=== PATIENT | female | born 1980 | race Caucasian/White ===

== ENCOUNTER 2016-05-30 06:45 | Observation (INO) | payer OTHER ==
[2016-05-30] MEDS ORDERED: PREN1TAB80 PO (07:06)
[2016-05-30] MEDS ORDERED: THYR300T PO (07:07)
[2016-05-30 07:08] VITALS: BP 144/87
[2016-07-06] MEDS ORDERED: FERR-89 PO (11:08)
== END 2016-05-30 09:05 | disposition home or self-care (01) ==
LOC: 4S 06:45
PROVIDERS: ADMIT Obstetrics & Gynecology; ATTEND Obstetrics & Gynecology
DX: O62.9 Abnormality of forces of labor, unspecified (principal); Z3A.32 32 weeks gestation of pregnancy
CPT/HCPCS: 59025; 76811; 76812; G0378

== ENCOUNTER 2016-06-01 17:35 | Observation (INO) | payer OTHER ==
[~2016-06-01] VITALS: Ht 175.3 cm; Wt 98.9 kg
[~2016-06-01 17:35] MED LIST: PREN1TAB80 PO; THYR300T PO
[2016-06-01 18:39] VITALS: BP 135/88
[2016-07-06] MEDS ORDERED: FERR-89 PO (11:08)
== END 2016-06-01 19:30 | disposition home or self-care (01) ==
LOC: 4S 17:35
PROVIDERS: ADMIT Obstetrics & Gynecology; ATTEND Obstetrics & Gynecology
DX: O26.893 Other specified pregnancy related conditions, third trimester (principal); Z3A.32 32 weeks gestation of pregnancy
CPT/HCPCS: 59025; G0378

== ENCOUNTER 2016-06-05 12:55 | Inpatient (IN) | payer OTHER ==
[~2016-06-05] VITALS: Ht 175.3 cm; Wt 100.2 kg
[2016-06-05] MEDS ORDERED: RINGERS SOLUTION,LACTATED 1,000 ML IV PRN (17:55)
[2016-06-05] MEDS ORDERED: CITRIC ACID/SODIUM CITRATE 30 ML SOLUTION UDCUP PO PRN (18:00)
[2016-06-05] MEDS ORDERED: METOCLOPRAMIDE HCL 5 MG/ML 2 ML VIAL IVP PRN (18:00)
[2016-06-05] MEDS: RINGERS SOLUTION,LACTATED 1,000 ML IV SCH ×2 (18:14→21:26)
[2016-06-05 18:24] LABS: BASOPHILS % (AUTO) 0.5 % (0.0-2.0); EOSINOPHILS % (AUTO) 0.2 % (1.0-6.0); HEMATOCRIT 33.2 % (36-46); HEMOGLOBIN 10.8 g/dL (12.0-16.0); MEAN CORPUSCULAR HEMOGLOBIN 28.5 pg (26.0-34.0); MEAN CORPUSCULAR HGB CONC 32.6 G/dL (31.0-37.0); MEAN CORPUSCULAR VOLUME 87 fL (80-100); MONOCYTES # (AUTO) 0.6 K/uL (0.1-1.0); MONOCYTES % (AUTO) 6.6 % (2.0-9.0); NEUTROPHILS # (AUTO) 5.6 K/uL (1.8-7.7); NEUTROPHILS % (AUTO) 60.7 % (40.0-70.0); RED CELL DISTRIBUTION WIDTH 14.2 % (11.5-14.5); WHITE BLOOD COUNT (AUTO) 9.3 K/uL (4.5-11.0)
[2016-06-05 18:40] LABS: ALANINE AMINOTRANSFERASE 14 U/L (12-78); ALBUMIN 2.5 g/dL (3.4-5.0); ANION GAP 12 mmol/L (8-16); ASPARTATE AMINOTRANSFERASE 13 U/L (15-37); BILIRUBIN,TOTAL 0.3 mg/dL (0.1-1.0); CALCIUM, TOTAL 8.2 mg/dL (8.8-10.5); CARBON DIOXIDE 22 mmol/L (22-29); CHLORIDE 103 mmol/L (98-107); CREATININE 0.65 mg/dL (0.60-1.30); GLOMERULAR FILTR. RATE CALC > 60 mL/min (>60); POTASSIUM 3.6 mmol/L (3.5-5.1); SODIUM SERUM 137 mmol/L (136-145); TOTAL PROTEIN, SERUM 6.7 g/dL (6.4-8.2); UREA NITROGEN, BLOOD 4 mg/dL (7-18)
[2016-06-05] MEDS: OXYGEN THERAPY IH SCH (20:00)
[2016-06-05] MEDS: NIFEdipine 10 MG CAPSULE PO SCH (21:20)
[2016-06-05] MEDS: BETAMETHASONE SOLUSPAN 6 MG/ML 5 ML VIAL IM SCH (21:23)
[2016-06-05 22:33] VITALS: BP 149/86
[2016-06-06] MEDS: NIFEdipine 10 MG CAPSULE PO SCH ×4 (03:26→21:50)
[2016-06-06] MEDS: RINGERS SOLUTION,LACTATED 1,000 ML IV SCH ×2 (14:21→20:58)
[2016-06-06] MEDS: OXYGEN THERAPY IH SCH ×2 (15:22→20:00)
[2016-06-06] MEDS ORDERED: THYROID 30 MG TABLET PO ONE (16:30)
[2016-06-06] MEDS: BETAMETHASONE SOLUSPAN 6 MG/ML 5 ML VIAL IM SCH (21:50)
[2016-06-06] MEDS ORDERED: DSS100 PO (22:19)
[2016-06-06] MEDS ORDERED: FERR-89 PO (22:20)
[2016-06-07] MEDS ORDERED: THYROID 30 MG TABLET PO SCH (06:30)
[2016-07-06] MEDS ORDERED: FERR-89 PO (11:08)
== END 2016-06-06 22:40 | disposition home or self-care (01) | DRG 781 ==
LOC: 4S 12:55 → OBSVTOIN 12:55
PROVIDERS: ADMIT Obstetrics & Gynecology; ATTEND Obstetrics & Gynecology
PROC: 4A1HXCZ Monitoring of Products of Conception, Cardiac Rate, External Approach (ICD-10-PCS; principal; 2016-06-05)
DX: O99.283 Endocrine, nutritional and metabolic diseases complicating pregnancy, third trimester (principal); O31.8X31 Other complications specific to multiple gestation, third trimester, fetus 1; O31.8X32 Other complications specific to multiple gestation, third trimester, fetus 2; O14.03 Mild to moderate pre-eclampsia, third trimester; O30.003 Twin pregnancy, unspecified number of placenta and unspecified number of amniotic sacs, third trimester; O36.8132 Decreased fetal movements, third trimester, fetus 2; E03.9 Hypothyroidism, unspecified; O99.013 Anemia complicating pregnancy, third trimester; D64.9 Anemia, unspecified; O60.00 Preterm labor without delivery, unspecified trimester; O32.1XX1 Maternal care for breech presentation, fetus 1; O09.523 Supervision of elderly multigravida, third trimester; Z3A.33 33 weeks gestation of pregnancy
CPT/HCPCS: 59025; 76805; 76815; 81050; 84156; 84550; J0702; J7120

== ENCOUNTER 2016-06-08 13:55 | Observation (INO) | payer OTHER ==
[~2016-06-08 13:55] MED LIST changes: +DSS100 PO; +FERR-89 PO
[2016-06-08 14:34] VITALS: BP 133/76
[2016-06-08] MEDS ORDERED: THYR240T PO (14:35)
[2016-07-06] MEDS ORDERED: FERR-89 PO (11:08)
== END 2016-06-08 15:35 | disposition home or self-care (01) ==
LOC: 4S 13:55
PROVIDERS: ADMIT Obstetrics & Gynecology; ATTEND Obstetrics & Gynecology
DX: Z34.93 Encounter for supervision of normal pregnancy, unspecified, third trimester (principal); Z3A.33 33 weeks gestation of pregnancy
CPT/HCPCS: 59025; 76805; G0378

== ENCOUNTER 2016-06-11 19:27 | Observation (INO) | payer OTHER ==
[~2016-06-11] VITALS: Ht 175.3 cm; Wt 100.7 kg
[~2016-06-11 19:27] MED LIST changes: +THYR240T PO; -THYR300T PO
[2016-06-11 20:06] VITALS: BP 137/86
[2016-07-06] MEDS ORDERED: FERR-89 PO (11:08)
== END 2016-06-11 21:10 | disposition home or self-care (01) ==
LOC: 4S 19:27
PROVIDERS: ADMIT Obstetrics & Gynecology; ATTEND Obstetrics & Gynecology
DX: Z34.93 Encounter for supervision of normal pregnancy, unspecified, third trimester (principal); Z3A.34 34 weeks gestation of pregnancy
CPT/HCPCS: 59025; 76815; G0378

== ENCOUNTER 2016-06-17 09:56 | Observation (INO) | payer OTHER ==
[2016-06-17 10:31] VITALS: BP 134/87
[2016-06-17 12:39] LABS: BASOPHILS % (AUTO) 0.4 % (0.0-2.0); EOSINOPHILS % (AUTO) 0.2 % (1.0-6.0); HEMATOCRIT 35.4 % (36-46); HEMOGLOBIN 11.4 g/dL (12.0-16.0); LYMPHOCYTES # (AUTO) 2.4 K/uL (1.0-4.8); LYMPHOCYTES % (AUTO) 24.4 % (22.0-44.0); MEAN CORPUSCULAR HEMOGLOBIN 27.9 pg (26.0-34.0); MEAN CORPUSCULAR HGB CONC 32.3 G/dL (31.0-37.0); MEAN CORPUSCULAR VOLUME 87 fL (80-100); MONOCYTES # (AUTO) 0.5 K/uL (0.1-1.0); MONOCYTES % (AUTO) 5.2 % (2.0-9.0); NEUTROPHILS # (AUTO) 6.9 K/uL (1.8-7.7); NEUTROPHILS % (AUTO) 69.8 % (40.0-70.0); RED BLOOD CELL COUNT(AUTO) 4.08 MIL/uL (4.00-5.20); RED CELL DISTRIBUTION WIDTH 14.6 % (11.5-14.5)
[2016-06-17 13:30] LABS: ANION GAP 12 mmol/L (8-16); CALCIUM, TOTAL 8.5 mg/dL (8.8-10.5); CARBON DIOXIDE 22 mmol/L (22-29); CHLORIDE 102 mmol/L (98-107); CREATININE 0.66 mg/dL (0.60-1.30); GLOMERULAR FILTR. RATE CALC > 60 mL/min (>60); POTASSIUM 4.5 mmol/L (3.5-5.1); SODIUM SERUM 136 mmol/L (136-145); UREA NITROGEN, BLOOD 7 mg/dL (7-18)
[2016-06-17 13:32] LABS: ALANINE AMINOTRANSFERASE 12 U/L (12-78); ALBUMIN 2.8 g/dL (3.4-5.0); ASPARTATE AMINOTRANSFERASE 13 U/L (15-37); BILIRUBIN,TOTAL 0.4 mg/dL (0.1-1.0); TOTAL PROTEIN, SERUM 6.4 g/dL (6.4-8.2)
[2016-06-17 13:45] LABS: URIC ACID 5.3 mg/dL (2.6-7.2)
[2016-06-17] MEDS ORDERED: RINGERS SOLUTION,LACTATED 500 ML IV ONE (14:05)
[2016-06-17] MEDS ORDERED: NIFEdipine 10 MG CAPSULE PO ONE (14:05)
[2016-06-17] MEDS ORDERED: RINGERS SOLUTION,LACTATED 1,000 ML IV ONE (14:22)
[2016-06-17] MEDS ORDERED: RINGERS SOLUTION,LACTATED 1,000 ML IV SCH (14:45)
[2016-07-06] MEDS ORDERED: FERR-89 PO (11:08)
== END 2016-06-17 17:50 | disposition home or self-care (01) ==
LOC: 4S 09:56
PROVIDERS: ADMIT Obstetrics & Gynecology; ATTEND Obstetrics & Gynecology
DX: O30.003 Twin pregnancy, unspecified number of placenta and unspecified number of amniotic sacs, third trimester (principal); O09.523 Supervision of elderly multigravida, third trimester; Z3A.35 35 weeks gestation of pregnancy
CPT/HCPCS: 36415; 59025; 76805; 80053; 84550; 85025; G0378; J7120

== ENCOUNTER 2016-06-20 14:58 | Observation (INO) | payer OTHER ==
[~2016-06-20] VITALS: Ht 175.3 cm; Wt 100.2 kg
[~2016-06-20 14:58] MED LIST changes: -FERR-89 PO; +FERS325 PO
== END 2016-06-20 18:10 | disposition home or self-care (01) ==
LOC: 4S 14:58
PROVIDERS: ADMIT Obstetrics & Gynecology; ATTEND Obstetrics & Gynecology
DX: O30.003 Twin pregnancy, unspecified number of placenta and unspecified number of amniotic sacs, third trimester (principal); Z3A.35 35 weeks gestation of pregnancy
CPT/HCPCS: 59025; 76805; G0378

== ENCOUNTER 2016-06-23 07:55 | Observation (INO) | payer OTHER ==
[~2016-06-23] VITALS: Ht 175.3 cm; Wt 101.2 kg
[~2016-06-23 07:55] MED LIST changes: +FERR-89 PO; -FERS325 PO
[2016-06-23 08:17] VITALS: BP 131/82
[2016-07-06] MEDS ORDERED: FERR-89 PO (11:08)
== END 2016-06-23 09:50 | disposition home or self-care (01) ==
LOC: 4S 07:55
PROVIDERS: ADMIT Obstetrics & Gynecology; ATTEND Obstetrics & Gynecology
DX: O30.003 Twin pregnancy, unspecified number of placenta and unspecified number of amniotic sacs, third trimester (principal); O09.523 Supervision of elderly multigravida, third trimester; Z3A.35 35 weeks gestation of pregnancy
CPT/HCPCS: 59025; 76805; G0378

== ENCOUNTER 2016-06-26 09:54 | Observation (INO) | payer OTHER ==
[~2016-06-26] VITALS: Ht 175.3 cm; Wt 101.6 kg
[~2016-06-26 09:54] MED LIST changes: -FERR-89 PO; +FERS325 PO
[2016-06-26 10:15] VITALS: BP 136/89
== END 2016-06-26 12:20 | disposition home or self-care (01) ==
LOC: 4S 09:54
PROVIDERS: ADMIT Obstetrics & Gynecology; ATTEND Obstetrics & Gynecology
DX: O30.003 Twin pregnancy, unspecified number of placenta and unspecified number of amniotic sacs, third trimester (principal); O09.523 Supervision of elderly multigravida, third trimester; Z3A.36 36 weeks gestation of pregnancy
CPT/HCPCS: 59025; 76805; G0378

== ENCOUNTER → 2016-06-27 | Outpatient (CLI) | payer OTHER ==
[2016-06-27 11:05] LABS: CREATININE 0.64 mg/dL (0.60-1.30); GLOMERULAR FILTR. RATE CALC > 60 mL/min (>60)
[2016-06-30 16:12] LABS: ALBUMIN URINE (ELP24) Note: %; TOTAL PROTEIN URINE 5.4 mg/dL (Not Estab.)
== END | disposition home or self-care (01) ==
LOC: LABMN 10:44
PROVIDERS: ATTEND Obstetrics & Gynecology
DX: O09.893 Supervision of other high risk pregnancies, third trimester (principal); Z3A.36 36 weeks gestation of pregnancy
CPT/HCPCS: 82565; 84156; 84166

== ENCOUNTER 2016-06-29 08:55 | Observation (INO) | payer OTHER ==
[2016-06-29 09:18] VITALS: BP 140/88
[2016-06-29 11:18] LABS: BASOPHILS # (AUTO) 0.04 K/uL (0.00-0.20); BASOPHILS % (AUTO) 0.7 % (0.0-2.0); EOSINOPHILS # (AUTO) 0.03 K/uL (0.00-0.70); EOSINOPHILS % (AUTO) 0.45 % (1.0-6.0); HEMATOCRIT 32.7 % (36-46); LYMPHOCYTES % (AUTO) 30.6 % (22.0-44.0); MEAN CORPUSCULAR HEMOGLOBIN 28.4 pg (26.0-34.0); MEAN CORPUSCULAR HGB CONC 33.6 G/dL (31.0-37.0); MEAN CORPUSCULAR VOLUME 85 fL (80-100); MONOCYTES # (AUTO) 0.5 K/uL (0.1-1.0); MONOCYTES % (AUTO) 7.6 % (2.0-9.0); NEUTROPHILS # (AUTO) 3.9 K/uL (1.8-7.7); NEUTROPHILS % (AUTO) 60.7 % (40.0-70.0); RED BLOOD CELL COUNT(AUTO) 3.86 MIL/uL (4.00-5.20); RED CELL DISTRIBUTION WIDTH 14.9 % (11.5-14.5); WHITE BLOOD COUNT (AUTO) 6.4 K/uL (4.5-11.0)
[2016-06-29 11:21] LABS: ANION GAP 12 mmol/L (8-16); CALCIUM, TOTAL 8.3 mg/dL (8.8-10.5); CARBON DIOXIDE 22 mmol/L (22-29); CHLORIDE 104 mmol/L (98-107); CREATININE 0.62 mg/dL (0.60-1.30); GLOMERULAR FILTR. RATE CALC > 60 mL/min (>60); POTASSIUM 4.2 mmol/L (3.5-5.1); SODIUM SERUM 138 mmol/L (136-145); UREA NITROGEN, BLOOD 7 mg/dL (7-18)
[2016-06-29 11:26] LABS: ALANINE AMINOTRANSFERASE 12 U/L (12-78); ALBUMIN 2.3 g/dL (3.4-5.0); ASPARTATE AMINOTRANSFERASE 11 U/L (15-37); BILIRUBIN,TOTAL 0.2 mg/dL (0.1-1.0); TOTAL PROTEIN, SERUM 6.4 g/dL (6.4-8.2)
== END 2016-06-29 12:05 | disposition home or self-care (01) ==
LOC: 4S 08:55
PROVIDERS: ADMIT Obstetrics & Gynecology; ATTEND Obstetrics & Gynecology
DX: O30.003 Twin pregnancy, unspecified number of placenta and unspecified number of amniotic sacs, third trimester (principal); O09.523 Supervision of elderly multigravida, third trimester; Z3A.36 36 weeks gestation of pregnancy
CPT/HCPCS: 36415; 59025; 76816; 80053; 84550; 85025; G0378

== ENCOUNTER 2016-07-01 10:15 | Observation (INO) | payer OTHER ==
[~2016-07-01] VITALS: Ht 175.3 cm; Wt 102.1 kg
== END 2016-07-01 11:25 | disposition home or self-care (01) ==
LOC: 4S 10:15
PROVIDERS: ADMIT Obstetrics & Gynecology; ATTEND Obstetrics & Gynecology
DX: O30.003 Twin pregnancy, unspecified number of placenta and unspecified number of amniotic sacs, third trimester (principal); O09.523 Supervision of elderly multigravida, third trimester; Z3A.37 37 weeks gestation of pregnancy
CPT/HCPCS: 59025; 76816; G0378

== ENCOUNTER 2016-07-03 05:47 | Inpatient (IN) | payer OTHER ==
[~2016-07-03] VITALS: Ht 175.3 cm; Wt 103.4 kg
[2016-07-03] MEDS ORDERED: RINGERS SOLUTION,LACTATED 1,000 ML IV ONE (05:48)
[2016-07-03] MEDS ORDERED: METOCLOPRAMIDE HCL 5 MG/ML 2 ML VIAL IVP ONE (06:00)
[2016-07-03] MEDS ORDERED: CITRIC ACID/SODIUM CITRATE 30 ML SOLUTION UDCUP PO ONE (06:00)
[2016-07-03] MEDS ORDERED: CeFAZolin 2 GM/DEXTROSE 50 ML IV ONE (06:00)
[2016-07-03] MEDS ORDERED: MIDAZOLAM HCL 2 MG/2 ML VIAL ONE (06:25)
[2016-07-03] MEDS ORDERED: MORPHINE SULFATE/PF 0.5 MG/ML 10 ML AMP ONE (06:25)
[2016-07-03] MEDS ORDERED: FentaNYL CITRATE-PF 100 MCG/2 ML VIAL ONE (06:26)
[2016-07-03 06:47] VITALS: BP 157/87
[2016-07-03 06:48] LABS: BASOPHILS # (AUTO) 0.05 K/uL (0.00-0.20); BASOPHILS % (AUTO) 0.7 % (0.0-2.0); EOSINOPHILS # (AUTO) 0.03 K/uL (0.00-0.70); EOSINOPHILS % (AUTO) 0.36 % (1.0-6.0); HEMATOCRIT 33.2 % (36-46); LYMPHOCYTES # (AUTO) 2.3 K/uL (1.0-4.8); LYMPHOCYTES % (AUTO) 32.3 % (22.0-44.0); MEAN CORPUSCULAR HEMOGLOBIN 27.9 pg (26.0-34.0); MEAN CORPUSCULAR HGB CONC 33.3 G/dL (31.0-37.0); MEAN CORPUSCULAR VOLUME 84 fL (80-100); MONOCYTES # (AUTO) 0.4 K/uL (0.1-1.0); MONOCYTES % (AUTO) 5.5 % (2.0-9.0); NEUTROPHILS # (AUTO) 4.4 K/uL (1.8-7.7); NEUTROPHILS % (AUTO) 61.1 % (40.0-70.0); PLATELET COUNT (AUTO) 307 K/uL (150-450); RED BLOOD CELL COUNT(AUTO) 3.96 MIL/uL (4.00-5.20); RED CELL DISTRIBUTION WIDTH 15.2 % (11.5-14.5); WHITE BLOOD COUNT (AUTO) 7.2 K/uL (4.5-11.0)
[2016-07-03] MEDS ORDERED: DiphenhydrAMINE HCL 50 MG/ML VIAL IVP PRN ×2 (09:15)
[2016-07-03] MEDS ORDERED: ONDANSETRON HCL 4 MG/2 ML VIAL IVP PRN ×2 (09:15)
[2016-07-03] MEDS ORDERED: MORPHINE SULFATE 4 MG/ML SYRINGE IVP PRN (09:15)
[2016-07-03] MEDS ORDERED: FentaNYL CITRATE-PF 100 MCG/2 ML VIAL IVP PRN ×2 (09:15)
[2016-07-03] MEDS ORDERED: MORPHINE SULFATE 2 MG/ML SYRINGE IVP PRN (09:15)
[2016-07-03] MEDS ORDERED: OXYGEN THERAPY IH SCH ×2 (09:15)
[2016-07-03] MEDS ORDERED: GUM MASTIC/STORAX/MSAL/ALCOHOL LIQUID 0.67 ML VIAL TP ONE (09:21)
[2016-07-03] MEDS ORDERED: DEXAMETHASONE SOD PHOS 4 MG/ML VIAL IVP ONE (12:00)
[2016-07-03] MEDS ORDERED: ONDANSETRON HCL 4 MG/2 ML VIAL IVP ONE (12:00)
[2016-07-03] MEDS ORDERED: EPHEDrine SULFATE 50 MG/ML VIAL IM ONE (12:00)
[2016-07-03] MEDS ORDERED: OXYTOCIN 10 UNITS/ML VIAL IM ONE (12:00)
[2016-07-03] MEDS: THYROID 30 MG TABLET PO SCH (12:11)
[2016-07-03] MEDS: NALBUPHINE HCL 10 MG/ML VIAL IVP SCH ×2 (12:22→18:11)
[2016-07-03] MEDS ORDERED: LANOLIN 7 GM OINTMENT TP PRN (12:45)
[2016-07-03] MEDS ORDERED: MEASLES/MUMPS/RUBELLA VACCINE, LIVE 0.5 ML/VIAL SQ ONE (12:45)
[2016-07-03] MEDS: KETOROLAC TROMETHAMINE 30 MG/ML VIAL IVP SCH ×2 (14:11→20:02)
[2016-07-03] MEDS: RINGERS SOLUTION,LACTATED 1,000 ML IV SCH ×2 (15:46→23:23)
[2016-07-04] MEDS: NALBUPHINE HCL 10 MG/ML VIAL IVP SCH (00:24)
[2016-07-04] MEDS: KETOROLAC TROMETHAMINE 30 MG/ML VIAL IVP SCH (02:55)
[2016-07-04] MEDS: THYROID 30 MG TABLET PO SCH (06:30)
[2016-07-04 07:04] LABS: BASOPHILS % (AUTO) 0.4 % (0.0-2.0); EOSINOPHILS % (AUTO) 0.2 % (1.0-6.0); HEMATOCRIT 24.9 % (36-46); LYMPHOCYTES # (AUTO) 2.6 K/uL (1.0-4.8); LYMPHOCYTES % (AUTO) 24.5 % (22.0-44.0); MEAN CORPUSCULAR HEMOGLOBIN 27.5 pg (26.0-34.0); MEAN CORPUSCULAR HGB CONC 32.1 G/dL (31.0-37.0); MEAN CORPUSCULAR VOLUME 86 fL (80-100); MONOCYTES # (AUTO) 0.8 K/uL (0.1-1.0); MONOCYTES % (AUTO) 7.6 % (2.0-9.0); NEUTROPHILS % (AUTO) 67.3 % (40.0-70.0); RED BLOOD CELL COUNT(AUTO) 2.91 MIL/uL (4.00-5.20); RED CELL DISTRIBUTION WIDTH 15.4 % (11.5-14.5); WHITE BLOOD COUNT (AUTO) 10.4 K/uL (4.5-11.0)
[2016-07-04] MEDS: IBUPROFEN 800 MG TABLET PO SCH ×3 (08:42→21:13)
[2016-07-04] MEDS: MAGNESIUM HYDROXIDE SUSPENSION 30 ML UDCUP PO PRN ×2 (08:42→21:13)
[2016-07-04] MEDS ORDERED: IBUPROFEN 800 MG TABLET PO PRN (12:45)
[2016-07-04] MEDS ORDERED: ACETAMINOPHEN/CODEINE 300-30 MG TABLET PO PRN ×2 (12:45)
[2016-07-05] MEDS: IBUPROFEN 800 MG TABLET PO SCH ×4 (03:14→20:22)
[2016-07-05] MEDS: THYROID 30 MG TABLET PO SCH (06:14)
[2016-07-05] MEDS: MAGNESIUM HYDROXIDE SUSPENSION 30 ML UDCUP PO PRN (08:29)
[2016-07-06] MEDS: IBUPROFEN 800 MG TABLET PO SCH ×2 (02:28→08:36)
[2016-07-06] MEDS: THYROID 30 MG TABLET PO SCH (06:31)
[2016-07-06] MEDS ORDERED: IBUP-1547 PO (11:07)
[2016-07-06] MEDS ORDERED: FERS325 PO (11:08)
[2016-07-06] MEDS ORDERED: DSS100 PO (11:10)
[2016-07-06] MEDS ORDERED: ACET1TAB12 PO (11:12)
== END 2016-07-06 13:35 | disposition home or self-care (01) | DRG 765 ==
LOC: 4S 05:47 → PREOBSVTOIN 08-02 05:52
PROVIDERS: ADMIT Obstetrics & Gynecology; ATTEND Obstetrics & Gynecology
PROC: 10D00Z1 Extraction of Products of Conception, Low, Open Approach (ICD-10-PCS; principal; 2016-07-03)
DX: O32.1XX2 Maternal care for breech presentation, fetus 2 (principal); O30.043 Twin pregnancy, dichorionic/diamniotic, third trimester; O99.284 Endocrine, nutritional and metabolic diseases complicating childbirth; O24.429 Gestational diabetes mellitus in childbirth, unspecified control; O14.94 Unspecified pre-eclampsia, complicating childbirth; O32.2XX1 Maternal care for transverse and oblique lie, fetus 1; E06.3 Autoimmune thyroiditis; Z37.2 Twins, both liveborn; Z3A.37 37 weeks gestation of pregnancy; O09.523 Supervision of elderly multigravida, third trimester; Z81.8 Family history of other mental and behavioral disorders; Z80.8 Family history of malignant neoplasm of other organs or systems; Z83.49 Family history of other endocrine, nutritional and metabolic diseases
CPT/HCPCS: 86850; 86900; 86901; 86920; 87081; J0690; J1100; J1885; J2250; J2274; J2300; J2405; J2590; J2765; J3010; J3490; J7120